=== PATIENT | female | born 1995 | race Caucasian/White ===

== ENCOUNTER 2025-03-16 04:10 | Emergency (ER) | payer MEDICAID, SELFPAY ==
[2025-03-16 04:12] VITALS: BMI 33.3
--- NOTE | 2025-03-16 04:16 | EKG_ITS ---
[facility] Test Date: 2025-03-16 Pat Name: LUCIE PERALES Department: Room: - Gender: Female [employer] V[employer]: : [id number] Requested By: Akil Turpin Order Number: [id number] Reading MD: Akil Turpin Measurements Intervals [place] Rate: 70 P: 30 NM: 137 QRS: 9 QRSD: 85 T: -5 QT: 387 QTc: 420 Interpretive Statements SINUS RHYTHM WITH SINUS ARRHYTHMIA LOW QRS VOLTAGE IN PRECORDIAL LEADS [QRS DEFLECTION < 1.0 mV IN CHEST LEADS] MINIMAL ST DEPRESSION [0.025+ mV ST DEPRESSION] No previous ECG available for comparison /[email or web address]/[id number].pdf
[2025-03-16 04:17] VITALS: BP 127/86; PULSE 83; RESP 18; TEMP 36.9; O2SAT 100
--- NOTE | 2025-03-16 04:34 | PD.EDRME ---
Rapid Medical Screening Exam RME Arrival date/time: 03/16/25 04:10 29F with history of marijuana use presents to ED with several hours of sudden TROTTER and N/V. Patient then passed out and was woken up by a family member. Chief Complaint: General Adult/Misc Complain Vital signs: Vital Signs Temperature 98.4 F 03/16/25 04:17 Pulse Rate 83 03/16/25 04:17 Respiratory Rate 18 03/16/25 04:17 Blood Pressure 127/86 H 03/16/25 04:17 Pulse Oximetry (%) 100 03/16/25 04:17 Oxygen Delivery Method Room Air 03/16/25 04:17
[2025-03-16 05:22] LABS: Basophils # (Auto) 0.1 Thou/mm3 (0.0-0.2); Basophils % (Auto) 1 % (0-2.5); Eosinophils # (Auto) 0.1 Thou/mm3 (0.0-0.5); Eosinophils % (Auto) 2 % (0-10); Hematocrit 39.0 % (36.0-46.0); Hemoglobin 13.7 g/dL (12.0-16.0); Immature Granulocytes Auto 0.11 Thou/mm3 (0.00-0.00); Lymphocytes # (Auto) 1.7 Thou/mm3 (1.0-4.8); Lymphocytes % (Auto) 24 % (10-50); Mean Corpuscular HGB Conc 35.1 g/dl (31.0-37.0); Mean Corpuscular Hemoglobin 31.3 pg (25.0-35.0); Mean Corpuscular Volume 89 fL (80-100); Monocytes # (Auto) 0.4 Thou/mm3 (0.0-0.8); Monocytes % (Auto) 6 % (0-12); Neutrophils # (Auto) 4.8 Thou/mm3 (1.8-7.7); Neutrophils % (Auto) 66 % (37-80); Nucleated Red Blood Cell # 0.00 Thou/mm3 (0.00-0.00); Nucleated Red Blood Cell % 0 /100 WBC (0); Platelet Count 248 Thou/mm3 (140-440); RDW Standard Deviation 38.7 fL (36.4-46.3); Red Blood Count 4.38 Miln/mm3 (4.00-5.20); White Blood Count 7.3 Thou/mm3 (3.6-11.0)
[2025-03-16 05:24] LABS: Collection Type, Urine Clean Catch
[2025-03-16 05:30] LABS: HCG Qualitative,Urine Negative
[2025-03-16 05:31] LABS: Bilirubin,Urine Negative (Negative); Blood,Urine Negative (Negative); Clarity,Urine Turbid (Clear/Hazy); Color,Urine Yellow (Lt Yel-Yel); Culture Indicated,Urine Not Indicated; Glucose, Urine Negative (Negative); Ketones,Urine Negative (Negative); Leukocyte Esterase,Urine Negative (Negative); Nitrite,Urine Negative (Negative); PH,Urine 7.5 (5.0-7.0); Protein,Urine Trace (Neg - Trace); RBC,Urine 2 /hpf (0-3); Specific Gravity,Urine 1.031 (1.001-1.035); Squamous Epithelial Cell,Urine 26 /hpf (0-5); Urobilinogen,Urine Negative mg/dL (0.0-1.0); WBC,Urine 1 /hpf (0-5)
[2025-03-16 05:37] LABS: Alanine Aminotransferase 75 U/L (10-49); Albumin, Serum 4.2 gm/dL (3.5-5.0); Albumin/Globulin Ratio 1.5 (1.2-2.2); Alcohol, Blood Medical < 10.0 mg/dL (0-10.0); Alkaline Phosphatase 69 U/L (46-116); Anion Gap 6 (7-16); Aspartate Amino Transferase 36 U/L (0-34); BUN/Creatinine Ratio 10 Ratio (12-20); Bilirubin,Total 0.5 mg/dL (0.3-1.2); Blood Urea Nitrogen 9 mg/dL (9-23); Calcium 9.1 mg/dL (8.3-10.6); Calcium (Corrected) 9.1 mg/dL (8.5-10.1); Carbon Dioxide 25.8 mMol/L (20.0-31.0); Chloride 111 mMol/L (98-107); Creatinine (Component) 0.9 mg/dL (0.6-1.3); Estimated Creatinine Clearance 104.5 mL/min (>60); Globulin 2.8 gm/dL (2.3-3.5); Glucose 109 mg/dL (74-106); Osmolality,Calculated 284 (275-295); Potassium 3.8 mMol/L (3.4-5.1); Sodium 143 mMol/L (136-145); Total Protein 7.0 gm/dL (5.7-8.2); Troponin I < 0.002 ng/mL (0.0-0.045); eGFR > 60 See Note
[2025-03-16 05:38] LABS: Amphetamine/Methamp Scrn,U Negative (Negative); Barbiturate Screen,Urine Negative (Negative); Benzodiazepines Screen,Urine Negative (Negative); Benzoylecgonine Screen, Ur Negative (Negative); Fentanyl Screen,Urine Negative (Negative); Opiate Screen,Urine Negative (Negative); THC Screen,Urine Positive (Negative)
--- NOTE | 2025-03-16 06:43 | PC.NURSE ---
CALLED FOR CT X 3 , NO ANSWER AT ER LOBBY OR OUTSIDE ER.
[2025-03-16 06:51] LABS: D-Dimer < 250 ng/mL (<600)
--- NOTE | 2025-03-16 06:52 | PC.NURSE ---
NO ANSWER AT ER LOBBY OR OUTSIDE ER.
== END 2025-03-16 06:52 | disposition left against medical advice (07) ==
PROVIDERS: Physician Assistant; Emergency Provider Emergency Medicine; PCP Family Medicine
DX: R51.9 Headache, unspecified (principal); R11.2 Nausea with vomiting, unspecified; R55 Syncope and collapse; I49.8 Other specified cardiac arrhythmias; Z53.29 Procedure and treatment not carried out because of patient's decision for other reasons
CPT/HCPCS: 36415; 80053; 80307; 80320; 81001; 81025; 84484; 85025; 85379; 93005; 99281; G0480